=== PATIENT | male | born 1945 | race Caucasian/White ===

== ENCOUNTER 2018-09-09 20:55 | Emergency (ER) | payer OTHER ==
[~2018-09-09] VITALS: Ht 170.1 cm; Wt 79.4 kg
[~2018-09-09 20:55] MED LIST: AMLODIPINE BESY1 TAB PO; NORVASC5 MG PO; ZITHROMAX250 MG PO
[2018-09-10] MEDS ORDERED: FISH OIL + D31 EACH PO (09:28)
[2018-09-10] MEDS ORDERED: ZYRTEC10 MG PO (09:40)
[2018-09-10] MEDS ORDERED: FLONASE ALLERG9.9 ML NAS (09:40)
[2018-09-10] MEDS ORDERED: ZITHROMAX250 MG PO (09:40)
== END 2018-09-09 23:40 | disposition left against medical advice (07) ==
LOC: ED 20:55
DX: R09.89 Other specified symptoms and signs involving the circulatory and respiratory systems (principal); Z53.21 Procedure and treatment not carried out due to patient leaving prior to being seen by health care provider

== ENCOUNTER 2018-09-10 09:12 | Emergency (ER) | payer OTHER ==
[~2018-09-10] VITALS: Wt 81.6 kg
[2018-09-10] MEDS ORDERED: FISH OIL + D31 EACH PO (09:28)
[2018-09-10] MEDS ORDERED: FLONASE ALLERG9.9 ML NAS (09:40)
[2018-09-10] MEDS ORDERED: ZYRTEC10 MG PO (09:40)
[2018-09-10] MEDS ORDERED: ZITHROMAX250 MG PO (09:40)
== END 2018-09-10 09:42 | disposition home or self-care (01) ==
LOC: ED 09:12
DX: J01.80 Other acute sinusitis (principal); Z79.899 Other long term (current) drug therapy

== ENCOUNTER 2019-02-22 11:59 | Emergency (ER) | payer OTHER ==
[~2019-02-22] VITALS: Ht 170.1 cm; Wt 81.6 kg
[~2019-02-22 11:59] MED LIST changes: +FISH OIL + D31 EACH PO; +FLONASE ALLERG9.9 ML NAS; +ZYRTEC10 MG PO
[2019-02-22] MEDS ORDERED: FLONASE ALLERG9.9 ML NAS (13:45)
[2019-02-22] MEDS ORDERED: TESSALON PERLE100 M1 PO (13:45)
[2019-02-22] MEDS ORDERED: SEPTDS PO (13:45)
== END 2019-02-22 13:55 | disposition home or self-care (01) ==
LOC: ED 11:59
DX: J32.9 Chronic sinusitis, unspecified (principal); J02.9 Acute pharyngitis, unspecified; F17.200 Nicotine dependence, unspecified, uncomplicated; Z79.899 Other long term (current) drug therapy

== ENCOUNTER 2022-10-10 21:38 | Emergency (ER) | payer OTHER ==
[~2022-10-10] VITALS: Wt 90.7 kg
[~2022-10-10 21:38] MED LIST changes: +SEPTDS PO; +TESSALON PERLE100 M1 PO
[2022-10-10] MEDS ORDERED: HYDROCODONE-AC1 EAC1 PO (22:35)
== END 2022-10-10 23:20 | disposition home or self-care (01) ==
LOC: ED 21:38
DX: S82.831A Other fracture of upper and lower end of right fibula, initial encounter for closed fracture (principal); E11.9 Type 2 diabetes mellitus without complications; W18.31XA Fall on same level due to stepping on an object, initial encounter; Y93.89 Activity, other specified; Y92.009 Unspecified place in unspecified non-institutional (private) residence as the place of occurrence of the external cause; Y99.8 Other external cause status

== ENCOUNTER → 2022-10-13 | Outpatient (CLI) | payer OTHER ==
[~2022-10-13] MED LIST changes: +HYDROCODONE-AC1 EAC1 PO
== END | disposition home or self-care (01) ==
LOC: RAD 13:22
PROVIDERS: ATTEND Orthopaedic Surgery
DX: S82.891A Other fracture of right lower leg, initial encounter for closed fracture (principal); X58.XXXA Exposure to other specified factors, initial encounter; Y93.89 Activity, other specified; Y92.89 Other specified places as the place of occurrence of the external cause; Y99.8 Other external cause status

== ENCOUNTER → 2022-10-27 | Outpatient (CLI) | payer OTHER | END | disposition home or self-care (01) | LOC: ORTHO 02:48 | PROVIDERS: ATTEND Orthopaedic Surgery | DX: S82.64XD Nondisplaced fracture of lateral malleolus of right fibula, subsequent encounter for closed fracture with routine healing (principal); X58.XXXD Exposure to other specified factors, subsequent encounter ==

== ENCOUNTER → 2022-11-19 | Outpatient (CLI) | payer OTHER | END | disposition home or self-care (01) | LOC: ORTHO 11-18 11:58 | PROVIDERS: ATTEND Orthopaedic Surgery | DX: S82.64XD Nondisplaced fracture of lateral malleolus of right fibula, subsequent encounter for closed fracture with routine healing (principal); M79.89 Other specified soft tissue disorders; M77.31 Calcaneal spur, right foot; X58.XXXD Exposure to other specified factors, subsequent encounter ==

== ENCOUNTER → 2022-11-23 | Outpatient (CLI) | payer OTHER ==
[2022-11-23 11:07] LABS: BASO # 0.1 10*3/uL (0.0-0.1); BASO % 0.7 % (0.0-1.0); EOS # 0.1 10*3/uL (0.0-0.4); EOS % 0.8 % (1.0-4.0); HEMATOCRIT 47.6 % (42.0-52.0); LYMPH # 1.4 10*3/uL (1.3-4.4); LYMPH % 12.1 % (27.0-41.0); MEAN CELL VOLUME 90.7 fl (80.0-94.0); MEAN CORPUSCULAR HGB 30.1 pg (27.0-31.0); MEAN CORPUSCULAR HGB CONC 33.2 g/dl (33.0-37.0); MEAN PLATELET VOLUME 9.3 fl (9.6-12.3); MONO # 1.2 10*3/uL (0.1-1.0); MONO % 10.4 % (3.0-9.0); NEUT # 8.6 10*3/uL (2.3-7.9); NEUT % 74.7 % (47.0-73.0); PLATELET COUNT AUTOMATED 357 10*3/uL (130-400); RED BLOOD COUNT 5.25 10*6/uL (4.50-5.90); RED CELL DISTRI WIDTH 13.5 % (0-14.5); WHITE BLOOD COUNT 11.5 10*3/uL (4.8-10.8)
[2022-11-23 11:45] LABS: ALKALINE PHOSPHATASE 55 U/L (46-116); BUN 16 mg/dl (9-23); CHLORIDE 104 mmol/L (98-107); CHOLESTEROL 124 mg/dL (<200); LDL CHOLESTEROL 60 mg/dL (9-159); SGPT/ALT 11 U/L (10-49); THYROID STIM HORMONE (HS) 0.907 uIU/ml (0.550-4.780); TOTAL PROTEIN 7.3 gm/dL (6.0-8.0); TRIGLYCERIDES 160 mg/dl (<150)
== END | disposition home or self-care (01) ==
LOC: LAB 10:46
PROVIDERS: ATTEND Internal Medicine
DX: E11.9 Type 2 diabetes mellitus without complications (principal); I10 Essential (primary) hypertension; E78.5 Hyperlipidemia, unspecified

== ENCOUNTER → 2025-03-27 | Outpatient (CLI) | payer OTHER ==
[2025-03-27 11:11] LABS: BASO # 0.0 10*3/uL (0.0-0.1); BASO % 0.4 % (0.0-1.0); EOS # 0.1 10*3/uL (0.0-0.4); EOS % 0.7 % (1.0-4.0); MEAN CELL VOLUME 89.0 fl (80.0-94.0); MEAN CORPUSCULAR HGB 29.2 pg (27.0-31.0); MEAN PLATELET VOLUME 9.2 fl (9.6-12.3); MONO # 1.1 10*3/uL (0.1-1.0); MONO % 10.4 % (3.0-9.0); NEUT # 8.4 10*3/uL (2.3-7.9); NEUT % 78.5 % (47.0-73.0); NUCLEATED RED BLOOD CELL 0.0 % (0.0-0.0); NUCLEATED RED BLOOD CELL 0.0 10*3/uL (0.0-0.0); PLATELET COUNT AUTOMATED 520 10*3/uL (130-400); RED CELL DISTRI WIDTH 14.6 % (0-14.5)
[2025-03-27 11:51] LABS: BUN 14 mg/dl (9-23); LDL CHOLESTEROL 48 mg/dL (9-159); SGPT/ALT 15 U/L (5-49)
== END | disposition home or self-care (01) ==
LOC: LAB 10:29
PROVIDERS: ATTEND Internal Medicine
DX: E11.9 Type 2 diabetes mellitus without complications (principal)